=== PATIENT | female | born 1995 | race Caucasian/White ===

== ENCOUNTER 2020-03-01 10:47 | Emergency (ER) | payer OTHER, SELFPAY ==
[2020-03-01 10:54] VITALS: BP 142/65; PULSE 101; RESP 14; TEMP 36.8; O2SAT 99
--- NOTE | 2020-03-01 11:18 | ED.GENADULT ---
HPI - General Adult General Chief complaint: Skin/Abscess/Foreign Body Stated complaint: rash Time Seen by Provider: 03/01/20 11:18 Source: patient and RN notes reviewed Mode of arrival: ambulatory Limitations: no limitations History of Present Illness HPI narrative: This is a 24 years old female presents to the office for an evaluation of skin lesion of her scalp. States, she was dying her own hair two days ago and the following day, she develops itchy, burning rash along her scalp. Associated with headache. This is a first time that she ever use these hair product; because normally she would go to hair salon to get it done. Denies any other associated symptoms such as fever, congestion, cough, nausea or vomiting. Related Data Allergies Allergy/AdvReac Type Severity Reaction Status Date / Time No Known Allergies Allergy Unknown Uncoded 03/01/20 11:00 Review of Systems Review of Systems: Narrative: CONSTITUTIONAL: Denies fever or feeling ill ENT: Denies congestion CARDIOVASCULAR: Denies chest pain RESPIRATORY: Denies dyspnea GASTROINTESTINAL: Denies nausea, vomiting SKIN: Reports burning with itchy scalp NEUROLOGIC: Denies lightheaded/dizziness PMFSH Comments At time of signature, I agree with nursing past medical, surgical, social and family history. There is no relevant family history pertinent to the presenting complaint. Exam Narrative: Exam Narrative: GENERAL: This is a well-nourished, well-developed patient, in no apparent distress. EYES:Sclera clear/white. Vision is grossly intact. EARS: right external ear appears edematious and erythema. Left external ear normal. Hearing grossly intact. THROAT: Mucous membranes moist, posterior pharynx clear. CARDIOVASCULAR: Regular rate and rhythm without murmurs, gallops, or rubs. RESPIRATORY: Clear to auscultation. Breath sounds equal bilaterally. No wheezes, rales, or rhonchi. GASTROINTESTINAL: Abdomen soft, non-tender, nondistended. Bowel sounds are active. No guarding. SKIN: right side scalp noted [id number], edematous and tender to palpation lesions. No warmth to palpation. No lymphandenitis. NEURO: awake, alert, and oriented to person, place and time. There were no obvious focal neurologic abnormalities. Steady gait Y[place] Coma Scale Eye Opening: Spontaneous 4 [place] Coma Scale Motor: Obeys Commands 6 [place] Coma Scale Verbal: Oriented 5 Course Vital Signs Vital signs: Vital Signs Temperature 98.2 F 03/01/20 10:54 Pulse Rate 101 H 03/01/20 10:54 Respiratory Rate 14 03/01/20 10:54 Blood Pressure 142/65 H 03/01/20 10:54 Pulse Oximetry 99 03/01/20 10:54 Temperature 98.2 F 03/01/20 10:54 Pulse Rate 101 H 03/01/20 10:54 Respiratory Rate 14 03/01/20 10:54 Blood Pressure 142/65 H 03/01/20 10:54 Pulse Oximetry 99 03/01/20 10:54 Medical Decision Making MDM Narrative Medical decision making narrative: Patient is Urgent/Emergent. BP elevated due to current condition w/o HTN in PMH (Measure Met). Discharge instructions reviewed with patient, as well as provided in writing per nursing staff. The instructions also include specific and strict return/GO TO THE ER as well as f/u information. All questions have been answered, and the patient deny any further questions with discharge and discharge plan. Differential Diagnosis Differential Diagnosis: Contact/allergic dermatitis, atopic dermatitis, psoriasis, eczema, cellulitis, tinea, erythema multiforme, viral exanthem Vital Signs Vital Signs: Vital Signs Temperature 98.2 F 03/01/20 10:54 Pulse Rate 101 H 03/01/20 10:54 Respiratory Rate 14 03/01/20 10:54 Blood Pressure 142/65 H 03/01/20 10:54 Pulse Oximetry 99 03/01/20 10:54 Temperature 98.2 F 03/01/20 10:54 Pulse Rate 101 H 03/01/20 10:54 Respiratory Rate 14 03/01/20 10:54 Blood Pressure 142/65 H 03/01/20 10:54 Pulse Oximetry 99 03/01/20 10:54 Critical Care Time Critical Care
== END 2020-03-01 11:40 | disposition home or self-care (01) ==
PROVIDERS: Emergency Provider Nurse Practitioner
DX: L24.89 Irritant contact dermatitis due to other agents (principal)
CPT/HCPCS: 99213; G0463

== ENCOUNTER 2020-06-05 13:11 | Emergency (ER) | payer OTHER, SELFPAY ==
[2020-06-05 13:34] VITALS: BP 131/76; PULSE 103; RESP 16; TEMP 36.9; O2SAT 99
--- NOTE | 2020-06-05 13:36 | ED.FEMALEGU ---
HPI - Female Genitourinary General Chief complaint: Urogenital-Female Stated complaint: UTI Time Seen by Provider: 06/05/20 13:55 Source: patient and RN notes reviewed Mode of arrival: ambulatory Limitations: no limitations History of Present Illness HPI Narrative: This is a 24 years old female presents to the office for an evaluation of possible UTI. Onset since yesterday with urinary urgency, frequency, and pain. She also reported lower back pain. She is sexually active with one partner. Denies chance of . Related Data Home Medications Medication Instructions Recorded Confirmed trazodone 100 mg PO DAILY 06/05/20 06/05/20 Allergies Allergy/AdvReac Type Severity Reaction Status Date / Time No Known Allergies Allergy Verified 06/05/20 14:03 Review of Systems Review of Systems: Narrative: CONSTITUTIONAL: Denies fever ENT: Denies rhinorrhea, congestion, sore throat CARDIOVASCULAR: Denies chest pain, palpitation RESPIRATORY: Denies dyspnea, wheezing, cough GASTROINTESTINAL: Denies abdominal pain, nausea, vomiting GENITOURINARY: Denies abnormal discharge/lesions SKIN: Denies rash MUSCULOSKELETAL: Reports lower back pain NEUROLOGIC: Denies lightheaded All other systems reviewed are negative, except as documented in HPI. PMFSH Comments At time of signature, I agree with nursing past medical, surgical, social and family history. There is no relevant family history pertinent to the presenting complaint. Exam Narrative: Exam Narrative: GENERAL: This is a well-nourished, well-developed patient, in no apparent distress. CARDIOVASCULAR: Regular rate and rhythm without murmurs, gallops, or rubs. RESPIRATORY: Clear to auscultation. Breath sounds equal bilaterally. No wheezes, rales, or rhonchi. GASTROINTESTINAL: Abdomen soft, non-tender, nondistended. Bowel sounds are active. No hepato-splenomegaly, or palpable masses. No guarding. NO CVA tenderness SKIN: warm, intact with no suspicious lesions or rash, good texture and turgor. NEURO: awake, alert, and oriented to person, place and time. There were no obvious focal neurologic abnormalities. Steady gait [place] Coma Scale Eye Opening: Spontaneous 4 Y[place] Coma Scale Motor: Obeys Commands 6 [place] Coma Scale Verbal: Oriented 5 Course Vital Signs Vital signs: Vital Signs Temperature 98.4 F 06/05/20 13:34 Pulse Rate 103 H 06/05/20 13:34 Respiratory Rate 16 06/05/20 13:34 Blood Pressure 131/76 06/05/20 13:34 Pulse Oximetry 99 06/05/20 13:34 Temperature 98.4 F 06/05/20 13:34 Pulse Rate 103 H 06/05/20 13:34 Respiratory Rate 16 06/05/20 13:34 Blood Pressure 131/76 06/05/20 13:34 Pulse Oximetry 99 06/05/20 13:34 MDM - Female Genitourinary MDM Narrative Medical decision making narrative: Discharge instructions reviewed with patient, as well as provided in writing per nursing staff. The instructions also include specific and strict return/GO TO THE ER as well as f/u information. All questions have been answered, and the patient* deny any further questions with discharge and discharge plan. Differential Diagnosis Differential diagnosis: Likely urinary tract infection, cervicitis, ovarian cyst, vaginitis and cystitis Lab Data Labs: Urine Glucose Negative Reference Range: Negative Urine Bilirubin Negative Reference Range: Negative Urine Ketone Negative Reference Range: Negative Urine Specific [place] 1.025 Reference Range:1.001-1.035 Urine Blood Negative Reference Range: Negative * * Urine pH 7.0 Reference Range: 5.0-9.0 Urine Protein 1+ Reference Range: Negative Urine Urobilinogen 1.0 Reference Range: 0.2-1.0 Urine Nitrate Negative Reference Range: Negative
== END 2020-06-05 14:05 | disposition home or self-care (01) ==
PROVIDERS: Emergency Provider Nurse Practitioner
DX: N30.00 Acute cystitis without hematuria (principal)
CPT/HCPCS: 81003; 87077; 87086; 87088; 87186; 99213; G0463

== ENCOUNTER 2020-07-02 16:52 | Emergency (ER) | payer OTHER, SELFPAY ==
[2020-07-02 17:03] VITALS: BP 118/62; PULSE 113; RESP 18; TEMP 37.5; O2SAT 97
--- NOTE | 2020-07-02 17:06 | ED.GENADULT ---
HPI - General Adult General Chief complaint: Nausea/Vomiting/Diarrhea Stated complaint: vomitting/light headed Time Seen by Provider: 07/02/20 17:06 Source: patient History of Present Illness HPI narrative: Patient here and states she has been late on her normal menses. Patient states her last normal period was May 22, 2020. Patient requests a test at today's visit. Patient denies any nausea no vomiting no abdominal pain and no pelvic pain. Patient states she frequently has unprotected intercourse, but is not concerned for any std. Patient states this is her third and has 2 healthy children at home. Related Data Allergies Allergy/AdvReac Type Severity Reaction Status Date / Time No Known Allergies Allergy Verified 07/02/20 17:09 Review of Systems Review of Systems: Narrative: CONSTITUTIONAL: Denies fever, chills, or sweats. EYES: Denies visual changes, redness, or discharge. ENT: Denies rhinorrhea, congestion, sore throat, or otalgia. CARDIOVASCULAR: Denies chest pain, palpitations, or edema. RESPIRATORY: Denies cough or dyspnea. GASTROINTESTINAL: Denies abdominal pain, nausea, vomiting, or diarrhea. GENITOURINARY: Denies dysuria or hematuria. SKIN: Denies rash or itching. MUSCULOSKELETAL: Denies back pain, joint pain, or myalgia. NEUROLOGIC: Denies headache, numbness, or weakness. PSYCHIATRIC: Denies anxiety or depression. PMFSH Comments At time of signature, agree with nursing past medical, surgical, social and family history. There is no relevant family history pertinent to the presenting complaint Exam Narrative: Exam Narrative: GENERAL: Well-appearing, well-nourished, and in no acute distress. HEAD: Normocephalic, atraumatic. EYES: PERRLA and EOMI. ENT: Nares clear, no rhinorrhea or epistaxis. Mucous membranes moist. NECK: Supple. CHEST: Clear to auscultation. No respiratory distress. HEART: Regular rate and rhythm. No murmur heard. Normal peripheral pulses. ABDOMEN: Soft, nontender, nondistended, normal active bowel sounds. EXTREMITIES: Normal range of motion. No edema. SKIN: Warm, dry, no rash. NEURO: No focal deficits. Alert and oriented x3. [place] Coma Scale Eye Opening: Spontaneous 4 Y[place] Coma Scale Motor: Obeys Commands 6 [place] Coma Scale Verbal: Oriented 5 [place] Coma Scale Total 15 Course Vital Signs Vital signs: Vital Signs Temperature 37.5 C 07/02/20 17:03 Pulse Rate 113 H 07/02/20 17:03 Respiratory Rate 18 07/02/20 17:03 Blood Pressure 118/62 07/02/20 17:03 Pulse Oximetry 97 07/02/20 17:03 Temperature 37.5 C 07/02/20 17:03 Pulse Rate 113 H 07/02/20 17:03 Respiratory Rate 18 07/02/20 17:03 Blood Pressure 118/62 07/02/20 17:03 Pulse Oximetry 97 07/02/20 17:03 Medical Decision Making Differential Diagnosis Differential Diagnosis: Irregular menses, Vital Signs Vital Signs: Vital Signs Temperature 37.5 C 07/02/20 17:03 Pulse Rate 113 H 07/02/20 17:03 Respiratory Rate 18 07/02/20 17:03 Blood Pressure 118/62 07/02/20 17:03 Pulse Oximetry 97 07/02/20 17:03 Temperature 37.5 C 07/02/20 17:03 Pulse Rate 113 H 07/02/20 17:03 Respiratory Rate 18 07/02/20 17:03 Blood Pressure 118/62 07/02/20 17:03 Pulse Oximetry 97 07/02/20 17:03 Lab Data Labs: UCG Bedside Result Positive Reference Range: Negative Critical Care Time Critical Care Time Critical Care Time: No Discharge Plan Discharge Clinical Impression: Irregular menses, Patient Disposition: Home, Self-Care Condition: Stable Instructions: Antibiotic Form Additional Instructions: Follow-up with OB head greenskeeper as soon as possible Take vitamins as prescribed Prescriptions: Maurilio [email or web address].vits,nemo,[email or web address] Tablet 1 tablet PO HS Qty: 30 RF: 0 Follow-up/Referrals: PHYSICIAN,IMPRESS ASSOCIATE [Primary Care Provider] - Time of Disposition: 17:17
== END 2020-07-02 17:25 | disposition home or self-care (01) ==
PROVIDERS: Emergency Provider Nurse Practitioner Family
DX: Z32.01 Encounter for pregnancy test, result positive (principal)
CPT/HCPCS: 81025; 99213; G0463

== ENCOUNTER 2025-11-12 08:49 | Emergency (ER) | payer OTHER, SELFPAY ==
--- OUTSIDE RECORDS SUMMARY | 2025-11-12 08:54 | XMS_ITS | Data Portability ---
Author Organization [facility] Address [address] [place] [address] Care Team Providers Care Tactical Response Group Officer Name Role Phone NOWAK, NIKKI Primary Care Provider [phone] JEROMY RUDOLPH [employer] Assessment Encounter Date Assessment Date Assessment LastModified by Organization Details LastModified Time 07/08/2024 07/08/2024 34 weeks, GBS and TDAP today f/u 2 weeks for cervix check Not available 07/08/2024 11:04:18 07/22/2024 07/22/2024 36 weeks, doing well, third baby Not available 07/22/2024 11:06:24 08/31/2024 08/31/2024 No PPD issues will get IUD in 2 weeks at PP exam after third baby Not available 08/31/2024 15:28:49 09/14/2024 09/14/2024 normal PP exam after third baby changed mind about IUD, will start minipill Not available 09/14/2024 11:47:15 05/03/2025 05/03/2025 will start patch after next cycle Not available 05/03/2025 15:30:38 Plan of Treatment Reminders Order Date Submit Date Provider Last Modified By Organization Details Last Modified Time Details Appointments None recorded. Lab cytology report, thin prep, smear or scraping, cervical or vaginal 2023 024 [facility], [address] [place] [address] 2, [place], [address], 11/04/202 4 16:12:48 urinalysis, dipstick 2023 024 In-Office Order, Internal Use Only DO Not Attach Compendium DO Not Attach Compendium, Do Not Delete/merge, [id number] 11:06:26 urinalysis, dipstick 2023 024 In-Office Order, Internal Use Only DO Not Attach Compendium DO Not Attach Compendium, Do Not Delete/merge, [id number] 11:04:20 streptococc us group B DNA 2023 024 [facility], [address] [place] [address], [id number], 16:10:21 Referral None recorded. Procedures None recorded. Surgeries None recorded. Imaging None recorded. Medication Orders Xulane 150 mcg-35 mcg/24 hr transdermal patch 2024 025 [facility] #[id number], [address], [place], [id number], 5 15:31:52 Fouzia 0.35 mg tablet 2023 025 [id number], [address], [place], [id number], 5 15:19:27 Patient TargetsNo targets recorded. Patient Instructions Encounter Date Encounter Id Patient Instructions Last Modified By Organization Details Last Modified Time 07/08/2024 [id number] tetanus and diphtheria booster: care instructions Not available 07/08/2024 11:04:19 08/31/2024 [id number] depression after childbirth: care instructions Not available 08/31/2024 15:28:49 stress in parent s of infants: care instructions Not available 08/31/2024 15:28:49 edinburgh depression scale* Not available 08/31/2024 15:28:50 09/14/2024 [id number] edinburgh depression scale* Not available 09/14/2024 11:48:44 05/03/2025 [id number] Quitting Tobacco : Care Instructions Not available 05/03/2025 15:30:52 A healthy lifestyle: care instructions Not available 05/03/2025 15:30:52 Reason for Referral None Reported. Results Created Date Observation Date Name Description Value Unit Range Abnormal Flag Note LastModifiedBy Organization Detail LastModifiedTime 06/10/20 24 06/10/2024 urina lysis , dipst ick Protein Trace Not Available In-Office Order Internal Use Only DO Not Attach Compendium DO Not Attach Compendium, Do Not Delete/merge, [id number] 06/07/2024 13:51:00 06/10/2006/10/2024 urina lysis , dipst ick Glucose Negati ve Not Available In-Office Order Internal Use Only DO Not Attach Compendium DO Not Attach Compendium, Do Not Delete/merge, [id number] 06/07/2024 13:51:00 06/24/2006/24/2024 GESTA MARLON L GLUCO SE MENDEL ANCE note: COMMEN T For diagn osis of gesta marlon l diabe romana, at least two value s must meet or excee d ml l limit s, which is based on 100 gm of oral gluco se chall enge. Not Available [facility] ([facility]) [address] [place], [address], 06/25/2024 11:14:12 06/24/20 24 06/25/2024 GESTA MARLON L GLUCO SE MENDEL ANCE glucose - fasting 80 mg/dL 70-94 Not Available [facility] ([facility]) [address] [place], [address], 06/25/2024 11:14:12 06/24/20 24 06/25/2024 GESTA MARLON L GLUCO SE MENDEL ANCE glucose - 1 hour 185 mg/dL 70-179 above high normal Not Available [facility] ([facility]) [address] [place], [address], 06/25/2024 11:14:12 06/24/20 24 06/25/2024 GESTA MARLON L GLUCO SE MENDEL ANCE glucose - 2 hour 137 mg/dL 70-154 Not Available [facility] ([facility]) [address] [facility], [place], [address], 06/25/2024 11:14:12 06/24/20 24 06/25/2024 GESTA MARLON L GLUCO SE MENDEL ANCE glucose - 3 hour 80 mg/dL 70-139 Not Available [facility] ([facility]) [address] [facility], [place], [address], 06/25/2024 11:14:12 06/24/20 24 06/24/2024 urina lysis , dipst ick Protein Trace Not Available In-Office Order Internal Use Only DO Not Attach Compendium DO Not Attach Compendium, Do Not Delete/merge, [id number] 06/22/2024 15:07:40 06/24/20 24 06/24/2024 urina lysis , dipst ick Glucose Negati ve Not Available In-Office Order Internal Use Only DO Not Attach Compendium DO Not Attach Compendium, Do Not Delete/merge, [id number] 06/22/2024 15:07:40 07/08/20 24 07/10/2024 STREP GP B SEGUNDO strep gp B SEGUNDO NEGATI VE negati ve Cente rs for Disea se Contr ol and Preve ntion (CDC) and Ameri can Congr ess of Obste trici ans and Gynec ologi sts (ACOG ) guide lines for preve ntion of perin atal group B strep tococ nemo (GBS) disea se speci fy co-co llect ion of a vagin al and recta l swab speci men to maxim ize sensi tivit y of GBS detec tion. Per the CDC and ACOG, swabb ing both the lower vagin a and rectu m subst antia lly incre ases the yield of detec tion fernandez red with sampl ing the vagin a alone . Penic illin G, ampic illin , or cefaz ayush are indic ated for intra partu m proph ylaxi s of perin atal GBS colon izati on. Refle x susce ptibi lity testi ng shoul d be perfo rmed prior to use of clind amyci n only on GBS isola romana from penic illin -enriqueta rgic women who are consi dered a high risk for anaph ylaxi s. Treat ment with vanco mycin witho ut addit ional testi ng is warra nted if resis tance to clind amyci n is noted . Not Available [facility] ([facility]) [address] [facility], [place], [address], 07/10/2024 16:10:21 07/08/2007/08/2024 urina lysis , dipst ick Protein Trace Not Available In-Office Order Internal Use Only DO Not Attach Compendium DO Not Attach Compendium, Do Not Delete/merge, 07/08/2024 10:55:42 07/08/20 24 07/08/2024 urina lysis , dipst ick Glucose Negati ve Not Available In-Office Order Internal Use Only DO Not Attach Compendium DO Not Attach Compendium, Do Not Delete/merge, 07/08/2024 10:55:42 07/22/20 24 07/22/2024 urina lysis , dipst ick Protein 30 Not Available In-Office Order Internal Use Only DO Not Attach Compendium DO Not Attach Compendium, Do Not Delete/merge, 07/22/2024 10:42:03 07/22/20 24 07/22/2024 urina lysis , dipst ick Glucose Negati ve Not Available In-Office Order Internal Use Only DO Not Attach Compendium DO Not Attach Compendium, Do Not Delete/merge, 07/22/2024 10:42:03 07/22/20 24 07/22/2024 urina lysis , dipst ick Appearance Slight ly Cloudy Not Available In-Office Order Internal Use Only DO Not Attach Compendium DO Not Attach Compendium, Do Not Delete/merge, 07/22/2024 10:42:03 07/22/20 24 07/22/2024 urina lysis , dipst ick Color Yellow Not Available In-Office Order Internal Use Only DO Not Attach Compendium DO Not Attach Compendium, Do Not Delete/merge, [id number] 07/22/2024 10:42:03 08/31/20 24 08/31/2024 edinb urgh postn atal depre ssion scale * Score 1 Not Available In-Office Order Internal Use Only DO Not Attach Compendium DO Not Attach Compendium, Do Not Delete/merge, [id number] 08/31/2024 15:14:48 09/14/2009/20/2024 IGP, RFX APTIM A HPV ASCU diagnosis: DAVID WILLETT FOR INTRA EPITH ELIAL KALEY Paul OR THANIA PETERSEN . Not Available [facility] ([facility]) [address] [place], [address], 09/20/2024 16:12:48 09/14/2009/20/2024 IGP, RFX APTIM A HPV ASCU specimen adequacy: DAVID Natarajan Satis facto ry for evalu ation . Endoc ervic al and/o r squam ous metap lasti c cells (endo cervi nemo compo nent) are prese nt. Not Available [facility] ([facility]) [address] [place], [address], 09/20/2024 16:12:48 09/14/20 24 09/20/2024 IGP, RFX APTIM A HPV ASCU clinician provided ICD10: DAVID Natarajan Z39.2 Not Available [facility] ([facility]) [address] [place], [address], 09/20/2024 16:12:48 09/14/20 24 09/20/2024 IGP, RFX APTIM A HPV ASCU performed by: Lenin Leon (ASCP ) Not Available [facility] ([facility]) [address] [place], [address], 09/20/2024 16:12:48 09/14/20 24 09/20/2024 IGP, RFX APTIM A HPV ASCU . . Not Available [facility] ([facility]) [address] [place], [address], 09/20/2024 16:12:48 09/14/20 24 09/20/2024 IGP, RFX APTIM A HPV ASCU note: COMMEN T The Pap smear is a scree blade test desig tom to aid in the detec tion of matt ligna nt and malig nant condi tions of the uteri ne cervi x. It is not a diagn ostic proce dure and shoul d not be used as the sole means of detec ting cervi nemo cance r. Both false -posi tive and false -nega tive repor ts do occur . Not Available [facility] ([facility]) [address] [facility], [place], [address], 09/20/2024 16:12:48 09/14/20 24 09/20/2024 IGP, RFX APTIM A HPV ASCU test methodology: COMMEN T This liqui d based ThinP rep(R ) pap test was scree tom with the use of an image guide d systmaura m. Not Available [facility] ([facility]) [address] [place], [address], 09/20/2024 16:12:48 09/14/20 24 09/20/2024 IGP, RFX APTIM A HPV ASCU . COMMEN T The HPV DNA refle x crite jarad were not met with this speci men resul t there fore, no HPV testi ng was perfo rmed. Not Available [facility] ([facility]) [address] [place], [address], 09/20/2024 16:12:48 09/14/20 24 09/14/2024 edinb urgh postn atal depre ssion scale * Score 0 Not Available In-Office Order Internal Use Only DO Not Attach Compendium DO Not Attach Compendium, Do Not Delete/merge, [id number] 09/14/2024 11:30:14 06/15/20 24 06/14/2024 US, lainey tijerinao w-up No observ ation record ed. CARL Wooten [facility] Scheduling [address] [facility] [place], [address], 06/17/2024 10:58:04 Result Notes None recorded. Problems Name Problem SNOMED Code Status Onset Date Resolution Date Notes Provider Name and Address Organization Details Recorded Time Obesity 588618626 Active 2020 Nikki Nowak APN MAIL READER-C Attn: Accounting ,[address] [place], [place], [address] [place] [address] , [facility] 1 10:23:45 Mood disorder 60167481 Active 2020 Nikki Nowak APN, FNP-Awilda Attn: Accounting ,[address] [place], [place], [address] [place] [address] , [facility] 1 10:24:07 Tobacco user 145762831 Active 2020 Nikki Nowak APN, FNP-C Attn: Accounting ,[address] [place], [place], [address] [place] [address] , [facility] 1 10:24:08 Gastroesop hageal reflux disease without esophagiti s 888839841 Active 2020 Nikki Nowak APN, FNP-C Attn: Accounting ,[address] [place], [place], [address] [place] [address] , [facility] 1 10:26:15 Vitamin D deficiency 49755925 Active 2022 ELISEO MANZO MD Attn: Accounting ,[address] [place], [place], [address] [place] [address] , [facility] 3 11:32:33 [id number] Completed 202308/13/2024 Lynn Christy Latanya null, [facility] 4 15:36:19 Problem Notes None recorded. Procedures Surgical History Date Name Laterality Status Provider Name and Address Organization Details Recorded Time 3 IUD Removal completed ELISEO MANZO MD Attn: Accounting[address] , [place], [address], [facility] 06/17/2023 11:15:05 3 Date of Last Pap Smear completed SCOOTER Donohue [facility] 01/28/2024 11:51:11 Imaging Results None recorded. Procedure Notes None recorded. Medical Equipment None Reported. Allergies No known drug allergies Medications Name Sig Start Date Stop Date Status Note LastModified by Organization Details LastModified Time cetirizine 10 mg tablet TAKE 1 TABLET BY MOUTH DAILY active Not Available Not Available No t Available benzonatat e 200 mg capsule TAKE 1 CAPSULE BY MOUTH UP TO THREE TIMES DAILY NEEDED FOR COUGH 01/27 completed Not Available Not Available Not Available hydrocodon e 5 mg-acetami nophen 325 mg tablet TAKE 1 TABLET BY MOUTH EVERY 6 HOURS NEEDED FOR MODERATE TO SEVERE PAIN 01/07 completed not taking Not Available Not Available Not Available meloxicam 15 mg tablet TK 1 T PO Q NIGHT PRN P 06/14 completed Not Available Not Available Not Available phenazopyr idine 200 mg tablet TAKE ONE TABLET BY MOUTH THREE TIMES DAILY 06/14 completed Not Available Not Available Not Available penicillin V potassium 500 mg tablet TAKE 1 TABLET BY MOUTH EVERY 8 HOURS FOR 10 DAYS 01/07 completed not taking Not Available Not Available Not Available metronidaz ole 500 mg tablet 06/14 completed Not Available Not Available Not Available amoxicilli n 500 mg tablet TAKE 1 TABLET BY MOUTH TWICE DAILY FOR 7 DAYS 01/27 completed Not Available Not Available Not Available amoxicilli n 875 mg tablet TAKE 1 TABLET BY MOUTH TWICE DAILY FOR 7 DAYS 05/03 completed Not Available Not Available Not Available famotidine 20 mg tablet TAKE 1 TABLET BY MOUTH TWICE DAILY NEEDED 06/17 completed Not Available Not Available Not Available cephalexin 500 mg capsule 06/14 completed Not Available Not Available Not Available ergocalcif mal (vitamin D2) 1,250 mcg (50,000 unit) capsule Take 1 capsule every week by oral route. 06/17 completed Not Available Not Available Not Available ibuprofen 600 mg tablet TAKE 1 TABLET BY MOUTH EVERY 6 HOURS NEEDED FOR PAIN 06/17 completed not taking Not Available Not Available Not Available methylpred nisolone 4 mg tablets in a dose pack FOLLOW PACKAGE DIRECTIO NS 05/03 completed Not Available Not Available Not Available norethindr one (contracep tive) 0.35 mg tablet TAKE 1 TABLET BY MOUTH EVERY DAY 05/03 completed Not Available Not Available Not Available ondansetro n 4 mg disintegra ting tablet DISSOLVE 1 TABLET ON THE TONGUE EVERY 8 HOURS NEEDED active Not Available Not Available No t Available fluticason e propionate 50 mcg/actuat ion nasal spray,susp ension 1 SPRAY IN EACH NOSTRIL EVERY NIGHT BEFORE BEDTIME. active Not Available Not Available No t Available escitalopr am 5 mg tablet TAKE 1 TABLET BY MOUTH EVERY DAY-MUST SCHEDULE APPT FOR FURTHER REFILLS 06/17 completed Not Available Not Available Not Available nitrofuran toin monohydrat e/macrocry stals 100 mg capsule TAKE 1 CAPSULE BY MOUTH TWICE DAILY FOR 7 DAYS 05/03 completed Not Available Not Available Not Available CompleteNa te 29 mg iron-1 mg chewable tablet Chew 1 tablet every day by oral route for 30 days. 01/27 completed Not Available Not Available Not Available Xulane 150 mcg-35 mcg/24 hr transderma l patch Apply 1 patch every week by transder mal route. 2024 active Not Available Not Available Not Avai lable Se-Kwasi 19 29 mg iron-1 mg tablet 06/14 completed Not Available Not Available Not Available Paxlovid 300 mg (150 mg x 2)-100 mg tablets in a dose pack TK 2 NIRMATRE LVIR TS AND 1 RITONAVI R T TOGETHER PO TWICE DAILY X 5 DAYS 01/27 completed Not Available Not Available Not Available Vitals Date Recorded Body height Body mass index (BMI) Body weight Systolic And Diastolic Provider Name and Address Organization Details Last Updated DateTime 05/03/2025 157.48 cm 34 kg/m2 81978.47 g 118/80 mm[Hg] Lynn Christy Latanya [place] [facility] 05/03/2025 15:18:37 Date Recorded Body height Body mass index (BMI) Body weight Systolic And Diastolic Provider Name and Address Organization Details Last Updated DateTime 07/08/2024 157.48 cm 38.6 kg/m2 55336.13 g 127/77 mm[Hg] Lynn Christy [facility] 07/08/2024 10:55:14 Date Recorded Body height Body mass index (BMI) Body weight Systolic And Diastolic Provider Name and Address Organization Details Last Updated DateTime 07/22/2024 157.48 cm 39 kg/m2 79615.61 g 116/78 mm[Hg] Rebeca Last [facility] 07/22/2024 10:40:57 Date Recorded Body height Body mass index (BMI) Body weight Systolic And Diastolic Provider Name and Address Organization Details Last Updated DateTime 08/31/2024 157.48 cm 33.7 kg/m2 13826.43 g 111/76 mm[Hg] Lynn Christy [facility] 08/31/2024 15:13:11 Date Recorded Body height Body mass index (BMI) Body weight Systolic And Diastolic Provider Name and Address Organization Details Last Updated DateTime 09/14/2024 157.48 cm 33.5 kg/m2 16233.83 g 113/78 mm[Hg] [facility] 09/14/2024 11:29:13 Social History Question Answer Notes LastModified by Organizat ion Details LastModified Time Tobacco Smoking Status Former Smoker Quit - 2021 Avelina Quezada MA [facility] 01/07/2023 09:56:02 Do You Have An Advance Directive? No Information not available 06/14/2021 Are You Blind Or Do You Have Difficulty Seeing? No Glasses Information not available 01/07/2023 What Is Your Level Of Caffeine Consumption? Occasional Coffee Information not available 01/07/2023 In The 14 Days Before Symptom Onset, Have You Had Close Contact With A Laboratory-confi rmed COVID-19 While That Case Was Ill? No Information not available 06/14/2021 In The 14 Days Before Symptom Onset, Have You Had Close Contact With A Person Who Is Under Investigation For COVID-19 While That Person Was Ill? No Information not available 06/14/2021 Have You Been To An Area Known To Be High Risk For COVID-19? No Information not available 06/14/2021 Are You Deaf Or Do You Have Serious Difficulty Hearing? No Information not available 06/14/2021 What Type Of Diet Are You Following? REGULAR Watching Carbs Information not available 06/17/2023 Are There Any Guns Present In Your Home? No Information not available 06/14/2021 What Was The Date Of Your Most Recent Tobacco Screening? 05/03/2025 Information not available 05/03/2025 How Many Children Do You Have? 2 Information not available 01/07/2023 What Is Your Relationship Status? Single Information not available 06/14/2021 Do You Use Your Seat Belt Or Car Seat Routinely? Yes Information not available 06/14/2021 Are You Sexually Active? Yes Information not available 06/17/2023 Do You Have Smoke And Carbon Monoxide Detectors In Your Home? Yes Information not available 06/14/2021 At What Age Did You Start Smoking Tobacco? 16 Information not available 06/14/2021 Are You Passively Exposed To Smoke? Yes Information not available 06/14/2021 How Much Tobacco Do You Smoke? 0.5 PPD Information not available 01/28/2024 Do You Use Sunscreen Routinely? Yes Information not available 06/14/2021 Has Tobacco Cessation Counseling Been Provided? Yes Information not available 01/07/2023 On What Date Was Tobacco Cessation Counseling Provided? 05/03/2025 Information not available 05/03/2025 How Many Years Have You Smoked Tobacco? 9 06/14/2021 Information not available 06/14/2021 Sex: Female Functional Status Question Answer Note LastModified by Organizat ion Details LastModified Time Do you use any illicit or recreational drugs? No Information not available 06/14/2021 Do you or have you ever used any other forms of tobacco or nicotine? Yes Information not available 06/14/2021 What is your level of alcohol consumption? None quit - 10/2022 Information not available 01/07/2023 Do you or have you ever used smokeless tobacco? Never used smokeless tobacco Information not available 06/14/2021 Are you currently employed? No Information not available 06/17/2023 Are you able to care for yourself independently? Yes Information not available 06/14/2021 Do you or have you ever used e-cigarettes or vape? Current user of electronic cigarettes 0.5% nicotine Information not available 01/07/2023 What is your exercise level? Occasional 2-3x week goes to gym Information not available 06/17/2023 Mental Status Question Answer Note LastModified by Organization D etails LastModified Time Do you feel stressed (tense, restless, nervous, or anxious, or unable to sleep at night)? [id number] Information not available 06/17/2023 Family History Relationship Description Onset Age of this Age Resolved Age Notes LastModified by Organization Details LastModified Time Father Depressive disorder [email or web address] Not available 2020 10:09:34 Medical History Condition Response Coronary Artery Disease N Other N High Blood Pressure N Atrial Fibrillation N Kidney or Bladder Problems N Thyroid Problems N GI Problems N Depression Y COPD N Blood Clots N Skin Problems N Eating Disorder N Anemia N Heart Attack ([place]) N Anxiety Disorder Y Diabetes N Muscle, Joint, or Bone Problems N Seizures/Epilepsy N Acid Reflux (GERD) Y Cancer N Stroke N Asthma N Allergies N ADHD N Substance Abuse N High Cholesterol N Hepatitis N Liver Disease N Schizophrenia N Headaches N Osteoporosis N Heart Failure N Gynecological History Statement/Question Response Flow Moderate Date of LMP 11/10/2023 On BCP's at Conception? N STIs/STDs N Duration of Flow (days) 5 Age at Menarche 15 Current Control Method None Age at First Child 18 Frequency of Cycle (Q days) 28 Sexually Active? Y Menses Monthly Y Date of Last Pap Smear 06/17/2023 Sexual Problems? N LMP Definite Desired Control Method Vaginal Rin g Obstetrics History GPAL:G 5 P 3 0 2 3 Type Value Full Term 3 Induced 2 Living 3 Total 5 Immunizations Vaccine Type Date Status Note Provider Nam e and Address Organization Details Recorded Time Hib, unspecified formulation 8 completed Nikki Nowak, DIRECTOR [employer]AN[employer], MAIL READER-C Attn: Accounting[address] [facility], [place], [place], [address] [place] [address], [facility] 01/07/2023 10:10:53 HPV9 1 completed Nikki Nowak, DIRECTOR [employer]ANCHISE SALES, MAIL READER-C Attn: Accounting,[address] [facility], [place], [place], [address] [place] [address], [facility] - [facility] 01/07/2023 10:10:53 IPV 2 completed Nikki Nowak, DIRECTOR [employer], MAIL READER-C Attn: Accounting,[address] [facility], [place], [place], [address] [place] [address], [facility] - [facility] 01/07/2023 10:10:53 MMR 8 completed Nikki Nowak, DIRECTOR [employer], MAIL READER-C Attn: Accounting,[address] [facility], [place], [place], [address] [place] [address], [facility] 01/07/2023 10:10:53 MMR 2 completed Nikki Nowak, DIRECTOR [employer]ES, MAIL READER-C Attn: Accounting,[address] [facility], [place], [address] [place] [address], [facility] 01/07/2023 10:10:53 influenza, unspecified formulation 7 completed Nikki Nowak, DIRECTOR [employer], MAIL READER-C Attn: Accounting,[address] [facility], [place], [address] [place] [address], [facility] 01/07/2023 10:10:53 Tdap 7 completed Nikki Nowak, DIRECTOR [employer]ES, MAIL READER-C Attn: Accounting,[address] [facility], [place], [address] [place] [address], [facility] 01/07/2023 10:10:53 varicella 7 completed Nikki Nowak, DIRECTOR [employer], MAIL READER-C Attn: Accounting,[address] [facility], [place], [address] [place] [address], [facility] 01/07/2023 10:10:53 varicella 2 completed Nikki Nowak, DIRECTOR [employer], MAIL READER-C Attn: Accounting,[address] [facility], [place], [address] [place] [address], [facility] 01/07/2023 10:10:53 OPV, trivalent 7 completed Nikki Nowak, DIRECTOR [employer], MAIL READER-C Attn: Accounting,[address] [facility], [place], [address] [place] [address], [facility] 01/07/2023 10:10:53 OPV, trivalent 7 completed Nikki Nowak, DIRECTOR FRANCHISE SALES, MAIL READER-C Attn: Accounting,204 1 [facility], [place], [place], [address] [place] [address], [facility] 01/07/2023 10:10:53 OPV, trivalent 7 completed Nikki Nowak, DIRECTOR FRANCHISE SALES, MAIL READER-C Attn: Accounting,204 1 [facility], [place], [place], [address] [place] [address], [facility] 01/07/2023 10:10:53 DTP-Hib 7 completed Nikki Nowak, DIRECTOR FRANCHISE SALES, MAIL READER-C Attn: Accounting,204 1 [facility], [place], [place], [address] [place] [address], [facility] 01/07/2023 10:10:53 DTP-Hib 7 completed Nikki Nowak, DIRECTOR FRANCHISE SALES, MAIL READER-C Attn: Accounting,204 1 [facility], [place], [place], [address] [place] [address], [facility] 01/07/2023 10:10:53 DTP-Hib 7 completed Nikki Nowak, DIRECTOR FRANCHISE SALES, MAIL READER-C Attn: Accounting,204 1 [facility], [place], [place], [address] [place] [address], [facility] 01/07/2023 10:10:53 HPV, bivalent 7 completed Nikki Nowak, DIRECTOR FRANCHISE SALES, MAIL READER-C Attn: Accounting,204 1 [facility], [place], [address] [place] [address], [facility] 01/07/2023 10:10:53 HPV, quadrivalent 7 completed Nikki Nowak, DIRECTOR FRANCHISE SALES, MAIL READER-C Attn: Accounting,204 1 [facility], [place], [place], [address] [place] [address], [facility] 01/07/2023 10:10:53 Hep B, adolescent or pediatric 7 completed Nikki Nowak, DIRECTOR FRANCHISE SALES, MAIL READER-C Attn: Accounting,204 1 [facility], [place], [address] [place] [address], [facility] 01/07/2023 10:10:53 Hep B, adolescent or pediatric 6 completed Nikki Nowak, DIRECTOR FRANCHISE SALES, MAIL READER-C Attn: Accounting,204 1 [facility], [place], [address] [place] [address], [facility] 01/07/2023 10:10:53 Hep B, adolescent or pediatric 6 completed Nikki Nowak, DIRECTOR FRANCHISE SALES, MAIL READER-C Attn: Accounting,204 1 [facility], [place], [address] [place] [address], [facility] 01/07/2023 10:10:53 Hep A, ped/adol, 2 dose 7 completed Nikki Nowak, DIRECTOR FRANCHISE SALES, MAIL READER-C Attn: Accounting,204 1 [facility], [place], [address] [place] [address], [facility] 01/07/2023 10:10:53 Hep A, ped/adol, 2 dose 6 completed Nikki Nowak, DIRECTOR FRANCHISE SALES, MAIL READER-C Attn: Accounting,204 1 [facility], [place], [address] [place] [address], [facility] 01/07/2023 10:10:53 DTaP 8 completed Nikki Nowak, DIRECTOR FRANCHISE SALES, MAIL READER-C Attn: Accounting,204 1 [facility], [place], [address] [place] [address], [facility] 01/07/2023 10:10:53 DTaP 2 completed Nikki Nowak, DIRECTOR FRANCHISE SALES, MAIL READER-C Attn: Accounting,204 1 [facility], [place], [place], [address] [place] [address], [facility] 01/07/2023 10:10:53 Tdap 5 completed Lynn Jaelyn, R[place], [place] [facility] 01/28/2024 11:52:01 Influenza, split virus, quadrivalent, PF 5 completed Lynn Jaelyn, [place] [facility] 01/28/2024 11:52:02 MMR 4 completed Lynn Mariace, RMA null, [place] - [facility] 09/14/2024 11:19:03 Tdap 4 completed Jeromy Rudolph MD Attn: Accounting,204 1 [facility], [place], [address], [facility] 07/08/2024 11:04:19 Past Encounters Encounter ID Performer Location Encounter Start Date Encounter Closed Date Diagnosis/Indication Diagnosis SNOMED-CT Code Diagnosis ICD10 Code Diagnosis IMO Codes Diagnosis Note [id number] MD Jorge Luis Aguilera (Adult Med) [address] [place] [address] 06/14/2021 09:57:46 06/15/2021 21:23:00 Adult health examination 846648754 Z00.01 Encouraged routine PRODUCTION SOLDERER, vision, dental exams, well balanced diet. Obesity 096380810 E66.9 advised low fat, low cholestero l diet, regular exercise and weight reduction. Mood disorder 82698684 F 40 used to be on medication , was in rehab at [facility] [place], would like referral to Tobacco user 912169775 Z 72.0 Smoking cessation encouraged . Gastroesop hageal reflux disease without esophagitis 031135751 K21.9 cont prn acid reducerdie t changes advised Impacted t hird molar tooth 358456182 K01.1 will send abx, advised pt ot see dentist Skin nodule 33985198 R22 .9 soft nodule to forehead, approx 2 cm, movable, no pain with palpation, no redness, dwp options for removal, declines referral for now [id number] MD Jorge Luis Aguilera (Adult Med) [address] [place] [address] 01/07/2023 09:41:57 01/08/2023 14:34:26 Adult health examination 370232248 Z00.01 Encouraged routine PRODUCTION SOLDERER, vision, dental exams, well balanced diet. Skin nodule 09444998 R22 .9 soft nodule to forehead, approx 2 cm, movable, no pain with palpation, no redness,ca using headaches, most daysdwp options for removal, now wants referral to have it removed Obesity 561777372 E66.9 advised low fat, low cholestero l diet, regular exercise and weight reduction. Gastroesop hageal reflux disease without esophagitis 748671602 K21.9 cont prn acid reducerdie t changes advised Mood disorder 35148948 F 40 used to be on medication , was in rehab at [place], would like referral to [facility]/B/A/SE of antidepres bessy medication discussed such as gastrointe stinal s/e, mood irritabili ty, Suicidal ideation, risk of paresh. F/U in 3-4 weeks. Call with concerns and questions. Compliance with medication s and follow up care strongly recommende d. Call 911 or ER for crises. Electronic cigarette user 200870462 Z72.89 Smoking cessation encouraged . [id number] [facility] [address] [place] [address] 06/17/2023 10:28:45 06/18/2023 10:30:08 Removal of intrauterine device 99532293 Z30.432 - Paraguard IUD removed without difficulty - Discussed importance of taking daily vitamin with folic acid 400 mcg since patient is not opposed to at this time- Provided and discussed Reproducti ve Access handout on preparing for Vitamin D deficiency 347 67850 E55.9 - Vitamin D deficient with level of 13.9 on 01/07/23- Advised patient of importance of vitamin D replacemen t when trying to conceive and during ; recommende d she call pharmacy to refresh prescripti on by PCP for high-dose replacemen t Body mass index 30+ - obesity 023939601 Z68.35 - Normal A1c on 01/07/23- Recommende d daily moderate-i ntensity activity and increasing fruit and vegetable intake in diet Routine gy necologic examination done 5465101463 4911 Z01.419 - Reviewed risks for infection and cancer; ordered screening tests as appropriat e Screening for malignant neoplasm of cervix 830298118 Z12.4 - Due for Pap; collected today [id number] MD Dolly Ramirez 14 [address] [facility] [place] [address] 01/28/2024 11:41:44 01/29/2024 12:33:47 Normal 55346818 Z34.90 [id number] MD Dolly Ramirez [address] [place] [address] 02/26/2024 09:51:57 02/27/2024 07:39:49 Normal 00676298 Z34.82 [id number] MD Dolly Ramirez [address] [place] [address] 04/01/2024 10:47:47 04/02/2024 15:21:54 Normal 55326435 Z34.82 [id number] MD Dolly Ramirez [address] [place] [address] 04/22/2024 10:41:22 04/24/2024 13:51:55 Normal 62799942 Z34.82 [id number] MD Dolly Ramirez [address] [place] [address] 05/21/2024 09:35:31 05/24/2024 12:44:16 Normal 15531323 Z34.82 [id number] MD Dolyl Ramirez [address] [place] [address] 06/10/2024 09:46:10 06/11/2024 10:41:43 Normal 89319192 Z34.82 [id number] MD Dolly Ramirez [address] [place] [address] 06/24/2024 09:53:41 07/12/2024 09:09:40 Normal [id number] Z34.82 [id number] MD Dolly Ramirez 14 [address] [facility] [place] [address] 07/08/2024 10:29:52 07/13/2024 10:47:12 Normal 92924679 Z34.82 Administra tion of diphtheria, pertussis, and tetanus vaccine 496735575 Z23 [id number] MD Dolly Ramirez 14 OB [address] [facility] [place] [address] 07/22/2024 10:31:33 08/06/2024 12:00:13 Normal 62992504 Z34.82 [id number] MD Dolly Ramirez 14 OB [address] [facility] [address] [place], [place] [address], [place] [address] 08/31/2024 14:59:30 09/02/2024 15:39:05 care 345058702 Z39.2 depression 58 012683 F53.0 [id number] MD Dolly Ramirez [address] [facility] [place] [address] 09/14/2024 11:09:32 09/16/2024 11:53:00 care 224156347 Z39.2 Contracept ion care management 465081191 Z30.9 [id number] MD Dolly Ramirez [address] [facility] [place] [address] 05/03/2025 15:06:26 05/04/2025 15:02:08 Depression screening negative 5242651647 61338 Z13.31 70233504 Smoker 35367424 F17.200 Obese class I 2366591344 55851 E66.811 2569061340 Prescripti on of contraception 833091464 Z30.016 14560030 Health Concerns Section Related Observation LastModified by Organization Detai ls LastModified Time None Recorded Concern Status LastModified by Organization Details LastModified Time None Recorded Advance Directives Directive N: Payers Insurance Date Sequence Insurance Name Policy Number Policy Diaz Covered Member ID Diaz Member ID Guarantor Name 05/03/2025 1 [facility] ON OR AFTER 05/17/21 (MEDICAID REPLACEMENT - HMO) Aicha Moreno [id number] Aicha Moreno 02/25/2025 1 [place] [facility] Aicha Moreno [id number] Aicha Moreno 02/25/2025 1 [facility] PRIOR TO 05/17/2021 (MEDICAID REPLACEMENT - HMO) Aicha Moreno [id number] Aicha Moreno 02/25/2025 1 [facility] PRIOR TO 2021 (MEDICAID REPLACEMENT - HMO) Aicha Mccormackborne [id number] Aicha Moreno Notes Date Note Type Note Provider Name and Address Organization Details Recorded Time 4 text/html VisitReported by Patient 4 weeks out from third vaginal delivery no PPD issuesbreast feedingI thought this one would be easier wants IUD at PP exam Jeromy Rudolph MD Attn: Accounting,20 41 [facility], [place], [address], [place] [facility] 08/31/2024 15:29:05 4 text/html VisitReported by Patient 3rd vaginal delivery 6 weeks ago.plan for IUD insertion todaybreastfeedingno PPD issues Jeromy Rudolph MD Attn: Accounting,20 41 [facility], [place], [address], [place] [facility] 09/14/2024 11:48:46 5 text/html Here for contraceptive discussion stopped breast feeding her 9 mos old two months ago, stopped minipill then interested in nuvaring which she has used before Jeromy Rudolph MD Attn: Accounting,20 41 [facility], [place], [address], [place] [facility] 05/03/2025 15:31:07 OBGyn Episode Ob Episode Information Episode Created Date Number of Fetuses Patient Bloodtype Patient rh Status Prepregnancy Weight lbs Domestic Partner Domestic Partner Phone Father Name Apparatus Repair Mechanic Status 01/28/20 24 1 A Positive CLOSED Fetus Data First Name Last Name Admitted to NICU Weight (g) Sex Living Outcome Pediatric Complications Fetus ID Race Codes Race Delivery Type Bentley MCMANUS DT false 3416.13 [id number] M true Full Term 98158 2106-3 White Vaginal Harvinder Calculation Initial Harvinder Date Initial Exam Date Initial Exam Provider Initial Ultrasound Date Last Menstrual Period Date Ultra Sound Weeks Gestation 08/16/2024 01/28/2024 03/29/2024 11/10/2023 20 Eighteen To Twenty Week Harvinder Update Ultra Sound Date Fundal Height At Umbil Quickening Date Ultra Sound Latest Weeks Gestation Final Harvinder Confirmed By Final Harvinder Confirmed Date Final Harvinder Date Ultra Sound Latest Days Gestation 06/14/20 24 31 04/01/2024 08/16/20 24 0 Pre- Flowsheet Flowsheet Date 01/28/2024 Kahn Score Blood Edema Fundus Height Fundus Units Glucose Ketones Leukocytes Nitrite Labor Signs Protein Cervic Dilation Cervic Effacement Cervic Station 11 wks Type Weight in lbs Pre/Post Dialysis Refused With clothes 199.875156973655 BP Diastolic BP Location Tested BP Systolic BP Type 80 132 sitting Fetus Heart Rate Present A 154 Present Fetus Movement Comments Normal NOB exam at 11 weeks, good FHTsHas a hx of 2 vaginal deliveries ( both girls 8 &9 ) Flowsheet Date 02/26/2024 Kahn Score Blood Edema Fundus Height Fundus Units Glucose Ketones Leukocytes Nitrite Labor Signs Protein Cervic Dilation Cervic Effacement Cervic Station none 15 wks none trace Type Weight in lbs Pre/Post Dialysis Refused With clothes 204.755684763711 BP Diastolic BP Location Tested BP Systolic BP Type 76 130 sitting Fetus Heart Rate Present A 145 Present Fetus Movement A Yes Comments 15 weeks doing wellplan andre elvin US in 3 weeks, f/u here in 4 weeks Flowsheet Date 04/01/2024 Kahn Score Blood Edema Fundus Height Fundus Units Glucose Ketones Leukocytes Nitrite Labor Signs Protein Cervic Dilation Cervic Effacement Cervic Station none 20 wks Type Weight in lbs Pre/Post Dialysis Refused With clothes 205.283263432813 BP Diastolic BP Location Tested BP Systolic BP Type 77 117 sitting Fetus Heart Rate Present A 146 Present Fetus Movement A Yes Comments EDC confirmed by US, still a boy, possibly Masona few pics missing from US, will get a f/u after next visit in 3 weeksPNV making constipated, will try some chewable kid vitamins Flowsheet Date 04/22/2024 Kahn Score Blood Edema Fundus Height Fundus Units Glucose Ketones Leukocytes Nitrite Labor Signs Protein Cervic Dilation Cervic Effacement Cervic Station none 22 cm none neg Type Weight in lbs Pre/Post Dialysis Refused With clothes 203.09982278154 BP Diastolic BP Location Tested BP Systolic BP Type 74 115 sitting Fetus Heart Rate Present A 143 Present Fetus Movement A Yes Comments 23 weeks .some const ipation issues. discussed fruit, apple juice, avoiding dehydration. Told her to call if worsens for colace discussion as well.plan f/u US before next time, sugar test at next visit Flowsheet Date 05/21/2024 Kahn Score Blood Edema Fundus Height Fundus Units Glucose Ketones Leukocytes Nitrite Labor Signs Protein Cervic Dilation Cervic Effacement Cervic Station none 25 cm Type Weight in lbs Pre/Post Dialysis Refused With clothes 203.342754895167 BP Diastolic BP Location Tested BP Systolic BP Type 73 112 sitting Fetus Heart Rate Present A 138 Present Fetus Movement A Yes Comments 27 weeks, active babydoing s ugar test todaystill waiting on f/u USconstipation better. reflux still challenging Flowsheet Date 06/10/2024 Kahn Score Blood Edema Fundus Height Fundus Units Glucose Ketones Leukocytes Nitrite Labor Signs Protein Cervic Dilation Cervic Effacement Cervic Station none 27 cm none none trace Type Weight in lbs Pre/Post Dialysis Refused With clothes 204.802609450340 BP Diastolic BP Location Tested BP Systolic BP Type 80 L arm 117 sitting Fetus Heart Rate Present A 146 Fetus Movement A Yes Comments Our lab was unable to do h er 3 hr GTT last week. Has a follow up US next week. Otherwise doing well Flowsheet Date 06/24/2024 Kahn Score Blood Edema Fundus Height Fundus Units Glucose Ketones Leukocytes Nitrite Labor Signs Protein Cervic Dilation Cervic Effacement Cervic Station 29 cm none trace Type Weight in lbs Pre/Post Dialysis Refused With clothes 208.777100014498 BP Diastolic BP Location Tested BP Systolic BP Type 78 L arm 121 sitting Fetus Heart Rate Present A 136 Fetus Movement A Yes Comments Doing 3 hr GTT todayactive b brooks, no ctx.works at [employer], discussed wanting to be off work as of 08/02, possible 39 week induction on 08/09 Flowsheet Date 07/08/2024 Kahn Score Blood Edema Fundus Height Fundus Units Glucose Ketones Leukocytes Nitrite Labor Signs Protein Cervic Dilation Cervic Effacement Cervic Station 32 cm none none trace Type Weight in lbs Pre/Post Dialysis Refused With clothes 211.242537529604 BP Diastolic BP Location Tested BP Systolic BP Type 77 R arm 127 sitting Fetus Heart Rate Present A 156 Fetus Movement A Yes Comments 34 weeks, GBS done todayacti vebabyno ctxgood spiritsplan cervix check at next visit Flowsheet Date 07/22/2024 Kahn Score Blood Edema Fundus Height Fundus Units Glucose Ketones Leukocytes Nitrite Labor Signs Protein Cervic Dilation Cervic Effacement Cervic Station none 34 cm none none neg 1cm 60% -3 Type Weight in lbs Pre/Post Dialysis Refused With clothes 213.472401607329 BP Diastolic BP Location Tested BP Systolic BP Type 78 R arm 116 sitting Fetus Heart Rate Present A 150 Fetus Movement A Yes Comments 1/60% on cervix todaylabor p recautions, kick countsf/u 1 1/2 weeks Menstrual History Last Menstrual Date Menses Monthly On Bcp Conception Prior Menses Frequency Hcg Plus Date Menarche Onset Age 1211/10/2023 Genetic Screening And Infection History Question Response Note Patient's Age Will Be 35 Years Or Older At Estim ated Date of Delivery false Thalassemia (Sami, Portuguese, Mediterranean, Or Background): MCV < 80 false Neural Tube Defect (Meningomyelocele, Spina Bifi da, Or Anencephaly) false Congenital Heart Defect false Down Syndrome false Jose Elias-Sachs (eg, Yarsanism, Cajun, Tristanian-Hubbard) f alse Silvano Disease false Sickle Cell Disease Or Trait () false Hemophilia Or Other Blood Disorders false Muscular Dystrophy false Cystic Fibrosis false Callaway's Chorea false Mental Retardation/Autism false If Yes, Was Person Tested For Fragile X? false Other Inherited Genetic Or Chromosomal Disorder false Maternal Metabolic Disorder (eg, Type 1 Diabetes , PKU) false Patient Or Baby's Father Had A Child With Defects Not Listed Above false Recurrent Loss, Or A Stillbirth false Medications (including Suppl ements, Vitamins, Herbs, OTC Drugs), Illicit/Recreational Drugs, Alcohol false If Yes, Agent(s) And Strength/Dosage false Any Other Genetic History false Live With Someone With TB Or Exposed To TB false Patient Or Partner Has History Of Genital Herpes false Rash Or Viral Illness Since Last Menstrual Perio d false History Of STD, Gonorrhea, Chlamydia, HPV, Syphi lis false Other Infection History false History of HIV false History of Hepatitis false Prior GBS-infected child false Delivery Information Delivery Date Delivery Type Labor Anesthesia Weeks Gestation Incision Type Labor Labor Length Hrs Delivered By Post Complications Tubal Sterilization Discharge Date Comments 4 Sponta neous 38 false RudolphPriyankJeromy MD false Discharge Information Feeding Method Contraceptive Method Maternal HG B and HCT Levels Breast Ob Episode Information Episode Created Date Number of Fetuses Patient Bloodtype Patient rh Status Prepregnancy Weight lbs Domestic Partner Domestic Partner Phone Father Name Apparatus Repair Mechanic Status 06/14/20 21 1 CLOSED Fetus Data First Name Last Name Admitted to NICU Weight (g) Sex Living Outcome Pediatric Complications Fetus ID Race Codes Race Delivery Type 3175.14 4 F Full Term [address]505 Vaginal Only Harvinder Calculation Initial Harvinder Date Initial Exam Date Initial Exam Provider Initial Ultrasound Date Last Menstrual Period Date Ultra Sound Weeks Gestation 0 Eighteen To Twenty Week Harvinder Update Ultra Sound Date Fundal Height At Umbil Quickening Date Ultra Sound Latest Weeks Gestation Final Harvinder Confirmed By Final Harvinder Confirmed Date Final Harvinder Date Ultra Sound Latest Days Gestation 0 0 Menstrual History Last Menstrual Date Menses Monthly On Bcp Conception Prior Menses Frequency Hcg Plus Date Menarche Onset Age Delivery Information Delivery Date Delivery Type Labor Anesthesia Weeks Gestation Incision Type Labor Labor Length Hrs Delivered By Post Complications Tubal Sterilization Discharge Date Comments 5 Dr. Randle delivered Discharge Information Feeding Method Contraceptive Method Maternal HG B and HCT Levels Ob Episode Information Episode Created Date Number of Fetuses Patient Bloodtype Patient rh Status Prepregnancy Weight lbs Domestic Partner Domestic Partner Phone Father Name Apparatus Repair Mechanic Status 06/14/20 21 1 CLOSED Fetus Data First Name Last Name Admitted to NICU Weight (g) Sex Living Outcome Pediatric Complications Fetus ID Race Codes Race Delivery Type 3628.73 6 F Full Term 36754 Vaginal Only Harvinder Calculation Initial Harvinder Date Initial Exam Date Initial Exam Provider Initial Ultrasound Date Last Menstrual Period Date Ultra Sound Weeks Gestation 0 Eighteen To Twenty Week Harvinder Update Ultra Sound Date Fundal Height At Umbil Quickening Date Ultra Sound Latest Weeks Gestation Final Harvinder Confirmed By Final Harvinder Confirmed Date Final Harvinder Date Ultra Sound Latest Days Gestation 0 0 Menstrual History Last Menstrual Date Menses Monthly On Bcp Conception Prior Menses Frequency Hcg Plus Date Menarche Onset Age Delivery Information Delivery Date Delivery Type Labor Anesthesia Weeks Gestation Incision Type Labor Labor Length Hrs Delivered By Post Complications Tubal Sterilization Discharge Date Comments 4 Dr. Randle delivered Discharge Information Feeding Method Contraceptive Method Maternal HG B and HCT Levels
--- OUTSIDE RECORDS SUMMARY | 2025-11-12 08:54 | XMS_ITS | Clinical Summary ---
Author Organization [employer] [facility] Address [address] [place] [address] Care Team Providers Care Nurse Practical Name Role Phone No, Pcp PET HOUSE SITTER Primary Care Provider Unavailabl e Social History Tobacco Use Types Packs/Day Years Used Date Smoking Tobacco: Never Assessed Comments Unknown Sex and Gender Information Value Date Recorded Sex Assigned at Not on file Legal Sex Female 5:54 PM EST Gender Identity Not on file Sexual Orientation Not on file Plan of Treatment Not on file Medical Devices Not on file Care Teams Nurse Practical Relationship Specialty Start Date End Date No, Pcp, PET HOUSE SITTER N/A Do not use PCP - General Family Medicine 11/21/20
--- OUTSIDE RECORDS SUMMARY | 2025-11-12 08:54 | XMS_ITS | Clinical Summary ---
Author Organization [facility] Address [address] [place] [address] Phone Care Team Providers Care College Hire Name Role Phone Modesto Monzonluis JHAVERI CNP Primary Care Provider [phone] Allergies No known active allergies Medications HYDROcodone-leeanna taminophen (NORCO) 5-325 MG TabletIndicatio ns:Cervical strain, acute, initial encounter Take 1 Tablet by mouth every 6 hours as needed for Moderate or more severe pain. 12 Tablet 07/21/2021 Active Family History Medical History Relation Name Comments Drug Abuse Father Drug Abuse Mother Bipolar Disorder Paternal Grandmother Bipolar Disorder Sister Relation Name Status Comments Father Mother Paternal Grandmother Sister Social History Tobacco Use Types Packs/Day Years Used Date Smoking Tobacco: Former Cigarettes Smokeless Tobacco: Current Alcohol Use Standard Drinks/Week Comments Not Currently 0 (1 standard drink = 0.6 oz pure alcohol) not drank in two months, was drinking daily, went to rehab three years ago AUDIT-C Answer Date Recorded Frequency of Alcohol Consumption Never 10/30/2019 Average Number of Drinks Not on file 019 Frequency of Binge Drinking Not on file 10/17 Sexually Active Control Partners Comments Yes Implant Comments No Sex and Gender Information Value Date Recorded Sex Assigned at Not on file Legal Sex Female 11:05 PM CDT Gender Identity Not on file Sexual Orientation Not on file Last Filed Vital Signs Vital Sign Reading Time Taken Comments Blood Pressure 130/75 12/07/2023 7:45 PM PRINTING TECHNICIAN Pulse 101 12/07/2023 7:45 PM PRINTING TECHNICIAN Temperature 36.5 C (97.7 F) 12/07/2023 7:45 PM PRINTING TECHNICIAN Respiratory Rate 19 12/07/2023 7:45 PM PRINTING TECHNICIAN Oxygen Saturation 98% 12/07/2023 7:45 PM PRINTING TECHNICIAN Inhaled Oxygen Concentration - - Weight 88.5 kg (195 lb) 12/07/2023 7:45 PM PRINTING TECHNICIAN Height 157.5 cm (5' 2) 12/07/2023 7:45 PM PRINTING TECHNICIAN Body Mass Index 35.67 12/07/2023 7:45 PM PRINTING TECHNICIAN Plan of Treatment Health Maintenance Due Date Last Done Comments Hepatitis C Virus (HCV) Screening 1996 Pap Smear 2017 Influenza Immunization (#1) 2025 08/30/2015, 1 11/29/2006 SARS-COV-2 Immunization ( season) 2025 Respiratory Syncytial Virus (RSV) Immunization (Adult) (1 - 1-dose 75+ series) 2071 Hepatitis B Immunization Completed 997, 1996, 1996 Varicella Immunization Completed 05/29/2007, 2001 DTaP/Tdap/Td Immunization Discontinued 2014, 05/29/2007, 07/01/2002, Additional history exists TdaP Immunization Completed 08/28/2015, 05/29/2007 Human Papillomavirus (HPV) Immunization Completed 09/11/2021, 09/29/2007, 05/29/2007 Meningococcal Immunization (ACWY) Aged Out No longer eligible based on patient's age to complete this topic Pneumococcal Immunization Combined Aged Out No longer eligible based on patient's age to complete this topic Rotavirus Immunization Aged Out No lo nger eligible based on patient's age to complete this topic Goals Goal Patient Goal Type Associated Problems Recent Progress Patient-Stated? Author Behavioral Health Behavioral Health Yes Sonia Bertrand, WEB APPLICATIONS DEVELOPER Note: I need to cope with my anger and not fly off the handle. Insurance MEDICAID [employer] Care Teams College Hire Relationship Specialty Start Date End Date Nikki Monzon APRN, CAROLYN PCP - General Family Medicine 07/21/21
--- OUTSIDE RECORDS SUMMARY | 2025-11-12 08:54 | XMS_ITS | Patient Health Record ---
Author Organization [facility] Address [address] [place] [address] Phone [phone] Care Team Providers Care Procurement Professional Logistics Name Role Phone Arnav JHAVERI Sandy Primary Care Provider + [phone] Dante Ken Unavailable [phone] Lola Martinez Unavailable Allergies No Known Allergies Results Component Value Reference Range Notes Test, Urine Order date: 05/10/2025 Reviewed date:05/10/2025 04:40:17 PM Interpretation:Negative Performing Lab: Notes/Report: Negative Test, Urine Neg Negative - Negative 12 Panel Urine Drug Screen Order date: 05/10/2025 Reviewed date:05/10/2025 03:47:55 PM Interpretation: Performing Lab: Notes/Report: THC neg BELEN neg MOP (OPI) neg AMP neg MET neg BAR neg BZO neg MDMA neg MTD neg OXY neg PCP neg BUP neg Reason For Referral Addressed Referral details can be found under 'Consultation Request Notes' section Medications Medication SIG (Take, Route, Frequency, Duration) Notes Start Date End Date Diagnosis (ICD Code) Status Naltrexone HCl 50 MG Tablet 0.5 tablet Orally once 5 Alcohol use disorder (ICD_10 - F10.99) Active Vivitrol 380 MG Suspension Reconstituted as directed Intramuscular every 28 days 5 Alcohol use disorder (ICD_10 - F10.99) Active Omeprazole 20 MG Capsule Delayed Release 1 capsule 30 minutes before morning meal Orally Once a day; Duration: 30 day(s) 0 Gastroesophageal reflux disease without esophagitis (ICD_10 - K21.9) Not-Takin g hydrOXYzine HCl 10 MG Tablet take 1-1.5 tablets Orally twice a day as needed for anxiety; Duration: 30 days Generalized an xiety disorder (ICD_10 - F41.1) Not-Takin g LaMICtal 25 MG Tablet Take 1 tablet daily Orally at night; Duration: 14 days Major depressive disorder (ICD_10 - F32.9) Not-Takin g traZODone HCl 50 MG Tablet 1 tablet at bedtime as needed Orally Once a day; Duration: 30 days Major depressive disorder (ICD_10 - F32.9) Not-Takin g Social History Tobacco Use: Social History Observation Description Date Details (start date - stop date) Unknown Sex Observation Social History Observation Description Sex Observation Female Sexual Orientation Social History Observation Description Sexual Orientation Straight or heterose xual Gender Identity Social History Observation Description Gender Identity Female SDOH Assessments Date Tool Assessment Assessment LOINC Value Assessment Notes Goals Interventions 05/10/20 25 PRAPARE (LOINC: 78089-1) Total Score: 10 What was your release date? 01/17/20 20 Date Completed/Updated: 04/04/2020 What is your current housing situation? 85185-8 I have housing (LY50322-1) Are you worried about losing your housing? 88547-6 No (LA32-8) What is the highest level of school that you have finished? 03234-9 Less than a high school degree (OC32750-4) What is your current work situation? 62155-7 Unemployed and seeking work (KJ35362-8) In the past year, have you o r any family members you live with been unable to get any of the following when it was really needed? 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 83294-7 Yes, it has kept me from medical appointments or from getting my medications (AI25446-5) Yes, it has kept me from non-medical meetings, appointments, work, or getting things needed for daily living (CH76409-2) How often do you see or talk to people that you care about and feel close to? (For example: talking to friends on the phone, visiting friends or family, going to restoration or club meetings) 49165-6 More than 5 times a week (PC16104-6) How stressed are you? Stress is when someone feels tense, nervous, anxious, or can\t sleep at night because their mind is troubled 95769-2 Somewhat (AJ38157-7) In the past year have you sp ent more than 2 nights in a row in a residential, residential, halfway center, or juvenile correctional facility? 97699-7 Yes (LA33-6) Do you feel physically and e motionally safe where you currently live? 16681-3 Yes (LA33-6) In the past year, have you b een afraid of your partner or ex-partner? 78670-7 No (LA32-8) Are you a refugee? No What country are you from? [facility] PRAPARE Score: 10 Social History Social Determinants Social Info Question Answer Notes PRAPARE Date Completed/Updated: 04/04/2020 What is your current housing situation? I have h ousing Are you worried about losing your housing? No What is the highest level of school that you have finished? Less than a high school degree What is your current work situation? Unemployed and seeking work In the past year, have you o r any family members you live with been unable to get any of the following when it was really needed? 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 Yes, it has kept me from medical appointments or from getting my medications,Yes, it has kept me from non-medical meetings, appointments, work, or getting things needed for daily living How often do you see or talk to people that you care about and feel close to? (For example: talking to friends on the phone, visiting friends or family, going to restoration or club meetings) More than 5 times a week How stressed are you? Stress is when someone feels tense, nervous, anxious, or can\t sleep at night because their mind is troubled Somewhat In the past year have you sp ent more than 2 nights in a row in a residential, residential, halfway center, or juvenile correctional facility? Yes What was your release date? 01/17/2020 Are you a refugee? No What country are you from? [place] Do you feel physically and e motionally safe where you currently live? Yes In the past year, have you b een afraid of your partner or ex-partner? No PRAPARE Score: 10 Miscellaneous Social Info Question Answer Notes Method of learning: Preferred method of learning: Hear ing Sexual History: Social Info Question Answer Notes Details of Sexual History Are you sexually active? Yes Have you had any sexually transmitted diseases ( STDs)? Yes Sexual Abuse History: history in the past Primary Social History Social Info Question Answer Notes Living Arrangement Living Arrangement: Independent Wen ing Is this a supportive environment? Yes Single Question Alcohol Screening How many times in the past year have you had (4 for women, or 5 for men) or more drinks in a day? 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 No Household: Social Info Question Answer Notes Household Number of adults in household: 2 Number of children in household: 3 Level of education: not finished high school sto pped at 9th grade Tobacco Use: Social Info Question Answer Notes Tobacco Control (Standard) Tobacco use: Uses tobacco i n other forms Additional Findings: Tobacco user e-cigarette Additional Details Category Social Info Options Details Miscellaneous Domestic violence: none Legal problems: none Living with: significant othe r Problems Problem Type SNOMED Code ICD Code Dates Problem Status W/U Status Risk Notes Problem Generalized anxiety disorder (63037897) Generalized anxiety disorder (F41.1) Added On:01/2020 Active confirmed Problem Anxiety (11246715) Anxiety (F41.9) Added On:12/2019 Active confirmed Problem Major depressive disorder (647017478) Major depressive disorder (F32.9) Added On:01/2020 Onset Date: 020 Active confirmed r/o bipolar disorder Problem Overweight (455388669) Over weight (E66.3) Added On:04/19 Active confirmed Problem Alcohol use disorder (1467042160) Alcohol use disorder (F10.99) Added On:04/18 Active confirmed Problem Recurrent major depression in remission (89044233) Recurrent major depressive disorder, in partial remission (F33.41) Added On:12/2019 Onset Date: 020 Active confirmed Problem Gastroesophageal reflux disease without esophagitis (692470675) Gastroesophageal reflux disease without esophagitis (K21.9) Added On:12/2019 Active confirmed Problem Alcohol dependence (45908546) Alcohol use disorder, severe, dependence (F10.20) Added On:03/17 Active confirmed Vital Signs Vital Sign Value Notes Appt Date Heart Rate 99 /min 05/10/2025 Respiratory Rate 18 /min 05/10/2025 Oximetry 98 % 05/10/2025 Blood pressure diastolic 74 mm Hg Height 62 in 05/10/2025 Blood pressure systolic 128 mm Hg 04/18 Weight 185.4 lbs 05/10/2025 BMI 33.91 kg/m2 05/10/2025 Encounters Date Time Type Facility Location Provider Diagnosis 05/10/2025 03:40 PM Office Visit, New Pt., Level 2 (14533) [address] [place] [address] Lola Martinez Alcohol use disorder F10.99 and Over weight E66.3 Assessments Encounter Date Diagnosis (ICD Code) Assessment Notes Treatment Notes Section Notes 05/10/2025 Over weight (ICD-10 - E66.3) 05/10/2025 Alcohol use disorder (ICD-10 - F10.99) 05/10/2025 Other Naltrexone Injection material was printed Referred to peer recovery Discussed medication side effects, adverse effects, risks, benefits, as well as interactions. Encouraged non-use of alcohol. Notify provider if having a procedure that may require pain medication. Has Vivitrol alert bracelet and wallet card. Carry written information with you at all times to alert healthcare providers that you are taking Vivitrol. Recommend participation in recovery groups, counseling services. Agrees to return to office in 28 days for next injection. Contact office with any questions or concerns. Plan Of Treatment No Information Insurance Providers Payer Name Payer Address Payer Phone Subscriber Number Group Number Insured Name Patient Relationship to Insured Coverage Start Date Coverage End Date [facility] Attn Claims Department [address] [place] [id number] MorenoTricia olsenge Self - patient is the insured 0 [facility] [employer] Attn Claims Department [address] [place] [address] [phone] [id number] Tricia Morenoge Self - patient is the insured 0 [facility] [address] [place] [phone] [id number] Aicha Moreno Self - patient is the insured 0 Medications Administered Medication Instructions Date of Administration Dosage Diagnosis (ICD Code) Notes Vivitrol 05/10/2025 380 mg Yang Brantley 05/10/2025 04:59:06 PM CDT > Pt tolerated well. No s&s of adverse reaction. Medical (General) History Medical History History ICD Code Depression Anxiety Gastroesophageal reflux disease without esophagitis K21.9 Surgical History Surgery Date(Month/Year) Hospitalization History Reason Date(Month/Year) Alcohol rehab at [facility] 02/2020 overdose Juan Ctler 2011
--- OUTSIDE RECORDS SUMMARY | 2025-11-12 08:55 | XMS_ITS | Encounter Summary ---
Author Organization [facility] Address [address] [place] [address] Care Team Providers Care Principal Archaeologist Name Role Phone Jae Alejandra MD Primary Care Provider Encounter Details Date Type Department Care Team ([facility] st Contact Info) Description 08/04/2024 [facility] Post Discharge Follow up phone call [facility] [address] [place] [address] Stephie Coffey RN Social History Tobacco Use Types Packs/Day Years Used Date Smoking Tobacco: Former Vaping Smokeless Tobacco: Never Comments:Smoking History Pac ks/day: 6 Cigarettes Alcohol Use Standard Drinks/Week Comments Yes 0 (1 standard drink = 0.6 oz pur e alcohol) [facility] Utilities Answer Date Recorded In the past 12 months has e Tackle Grab, gas, oil, or water [employer] threatened to shut off services in your home? No 08/02/2024 Humiliation, Afraid, Rape, and Kick questionnair e Answer Date Recorded Within the last year, have y ou been afraid of your partner or ex-partner? No 08/02/2024 Within the last year, have y ou been humiliated or emotionally abused in other ways by your partner or ex-partner? No Within the last year, have y ou been kicked, hit, slapped, or otherwise physically hurt by your partner or ex-partner? No 08/02/2024 Within the last year, have y ou been raped or forced to have any kind of sexual activity by your partner or ex-partner? No 08/02/2024 Social Connection and Isolation Panel Answer Date Recorded In a typical week, how many times do you talk on the phone with family, friends, or neighbors? More than three times a week 08/02/2024 How often do you get togethe r with friends or relatives? More than three times a week 08/02/2024 How often do you attend chur ch or orthodoxy services? 1 to 4 times per year 08/02/2024 Do you belong to any clubs o r organizations such as temple groups, unions, fraternal or athletic groups, or school groups? Yes 08/02/2024 How often do you attend meet ings of the clubs or organizations you belong to? 1 to 4 times per year 08/02/2024 Are you , , di vorced, , never , or living with a partner? Living with partner 08/02/2024 AUDIT-C Answer Date Recorded Q1: How often do you have a drink containing alcohol? Never 08/02/2024 Q2: How many drinks containi ng alcohol do you have on a typical day when you are drinking? Patient does not drink Q3: How often do you have si x or more drinks on one occasion? Never 08/02/2024 Overall Financial Resource Strain (CARDIA) Answe r Date Recorded How hard is it for you to pa y for the very basics like food, housing, medical care, and heating? Not hard at all 08/02/2024 PHQ-2 Answer Date Recorded PHQ-2 Total Score (If total score is 3 or more points, staff should administer the PHQ-9) 0 08/02/2024 [facility] - Occupational Stress Questionnaire Answer Date Recorded Do you feel stress - tense, restless, nervous, or anxious, or unable to sleep at night because your mind is troubled all the time - these days? Not at all 08/02/2024 Exercise Vital Sign Answer Date Recorde d On average, how many days pe r week do you engage in moderate to strenuous exercise (like a brisk walk)? 4 days 08/02/2024 On average, how many minutes do you engage in exercise at this level? 40 min 08/02/2024 Hunger Vital Sign Answer Date Recorded Within the past 12 months, y ou worried that your food would run out before you got the money to buy more. Never true 08/02/20 24 Within the past 12 months, t he food you bought just didn't last and you didn't have money to get more. Never true 08/02/2024 PRAPARE - Transportation Answer Date Re corded In the past 12 months, has l ack of transportation kept you from medical appointments or from getting medications? No 07/18 In the past 12 months, has l ack of transportation kept you from meetings, work, or from getting things needed for daily living? No 08/02/2024 [place] Depression Scale Answer Date Recorded [place] Depression Scale Total 0 08/02/2024 The thought of harming myself has occurred to me . Never 08/02/2024 PHQ-9 Answer Date Recorded PHQ-9 Total Score 0 08/02/2024 Housing Stability Vital Sign Answer Aldo e Recorded In the last 12 months, was t here a time when you were not able to pay the mortgage or rent on time? No 08/02/2024 In the past 12 months, how m any times have you moved where you were living? 0 08/02/2024 At any time in the past 12 m onths, were you homeless or living in a fpc (including now)? No 08/02/2024 Personal Safety Answer Date Recorded Have you ever been in or are you currently in a harmful physical or emotional relationship or is someone making you feel afraid or unsafe? 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
--- OUTSIDE RECORDS SUMMARY | 2025-11-12 08:55 | XMS_ITS | Clinical Summary ---
Author Organization [facility] Address [address] [place] [address] Care Team Providers Care Speech Pathology Supervisor Name Role Phone Jae Alejandra MD Primary Care Provider Allergies No known active allergies Medications benzocaine-ment hoL (DERMOPLAST) 20-0.5 % aerosolIndicati ons:Minor Skin Wound Pain Apply 1 Application (1 spray total) topically as needed for other (perianal area for pain) 1 g 1 4 Active ibuprofen (ADVIL,MOTRIN) 600 mg tabletIndicatio ns:Cramps Take 1 tablet (600 mg total) by mouth every 6 (six) hours as needed for pain 30 tablet 1 4 Active Active Problems Problem Noted Date Diagnosed Date 38 weeks gestation of 08/02/2024 Lumbar strain, initial encounter 05/27/2020 Left Achilles tendinitis 03/27/2019 Trichomoniasis 10/14/2018 Cervicitis 10/14/2018 Urinary tract infection in female 10/14/2018 Amenorrhea 11/19/2017 Assessment & Plan (11/19/2017 6:23 PM WATERSHED ENGINEER): Aicha had a positive test which would put her at 5 weeks and 4 days based on her last menstrual period of September 15, 2017; patient is very upset and states that there is no way she can keep the baby; highly encouraged her to contact [facility] for counseling; encouraged her to get on a daily vitamin regardless of what her outcome will be; patient denies wanting to hurt self or others but encouraged to go to ER immediately if she feels like doing so. Depression 12/01/2014 Overview (02/20/2017): Depression Immunizations Immunization Administration Dates Next Due MMR 08/03/2024 Surgical History Surgery Date Site/Laterality Comments OTHER SURGICAL HISTORY 2013 : 2 hr labor Medical History Medical History Date Comments Hx Other Medical manag ement; Outcome: Live infant Hx Other Medical 10/03/2014 Depression Hx Other Medical ; Outc ome: 40 Weeks week 7lb(s) 12 oz Female Family History Medical History Relation Name Comments Hypertension Maternal Grandmother Hyperte nsion; Hypertension Mother Hypertension; Other Mother Blood disorder; Thyroid disease Mother Thyroid dise ase; Relation Name Status Comments Maternal Grandmother Mother Social History Tobacco Use Types Packs/Day Years Used Date Smoking Tobacco: Former Vaping Smokeless Tobacco: Never Comments:Smoking History Pac ks/day: 6 Cigarettes Alcohol Use Standard Drinks/Week Comments Yes 0 (1 standard drink = 0.6 oz pur e alcohol) [facility] [employer] Answer Date Recorded In the past 12 months has [employer], oil, or water [employer] threatened to shut off services in your [...] week 08/02/2024 How often do you attend [facility] or pentecostalism services? 1 to 4 times per year 08/02/2024 Do you belong to any clubs o r organizations such as yazidi groups, unions, fraternal or athletic groups, or [...] staff should administer the PHQ-9) 0 08/02/2024 [facility] [place] of Occupat ional Health - Occupational Stress Questionnaire Answer Date Recorded [...] things needed for daily living? No 08/02/2024 [place] Depression Scale Answer Date Recorded [place] Depression Scale Total 0 08/02/2024 The thought [...] any time in the past 12 m ont, were you homeless or living in a long-term (including now)? No 08/02/2024 Personal Safety Answer Date Recorded Have you ever been in or are you currently in a harmful physical or emotional relationship or is someone making you feel afraid or unsafe? Denies 05/21/2025 Comments No Sex and Gender Information Value Date Recorded Sex Assigned at Not on file Legal Sex Female 5:03 PM WATERSHED ENGINEER Gender Identity Not on file Sexual Orientation Not on file Obstetrics History Para Term AB IAB SAB Ectopic Multiple Livin g Live Births 6 3 3 2 0 3 3 Date Outcome GA Total Labor Labor/2nd/3rd Weight Sex Type Anes PTL Wen A1 A5 Name Clin Term Vag-Sp ont Livin g Term Vag-Sp ont Livin g AB AB 2023 Term 38w 0d 0h 39m 0h 32m/0h 07m 3.417 kg (7 lb 8.5 oz) M Vagina l Epidur al N Livin g 7 9 Gabri marianne Phelan s Josiah landry, Priyank aguilera MD Complications:Precipitous La bor (<3 hours) Delivery Location:[facility] ([facility]) Last Filed Vital Signs Vital Sign Reading Time Taken Comments Blood Pressure 138/84 05/21/2025 4:01 PM CDT Pulse 85 05/21/2025 4:01 PM CDT Temperature 36.5 C (97.7 F) 05/21/2025 4:01 PM CDT Respiratory Rate 18 05/21/2025 4:01 PM CDT Oxygen Saturation 96% 05/21/2025 4:01 PM CDT Inhaled Oxygen Concentration - - Weight 83.9 kg (185 lb) 05/21/2025 4:01 PM CDT Height 157.5 cm (5' 2) 05/21/2025 4:01 PM CDT Body Mass Index 33.84 05/21/2025 4:01 PM CDT Plan of Treatment Health Maintenance Due Date Last Done Comments Regular Well Visit/Exam 18-64 2014 Pneumococcal vaccine <65 (1 of 2 - PCV) 2015 Cervical Cancer Screening 10/24/2018 10/24/2017, 05/2013 Influenza Vaccine (#1) 2025 08/30/2015, 2006 Depression Screening 08/02/2025 08/02/2024, 08/02/20 24 DTaP/Tdap/Td Vaccine (9 - Td or Tdap) 07/08/2034 07/08/2024, 08/28/2015, 05/29/2007, Additional history exists Hepatitis B Screening Completed 03/09/1997 , 1996, 1996 Varicella Vaccines Completed 05/29/2007, 07/01/2002 Hepatitis C Screening Completed 07/26/2020 , 03/07/2017, 04/28/2015, Additional history exists HPV Vaccines Completed 09/11/2021, 09/17, 05/29/2007 Procedures Procedure Name Priority Date/Time Associated Diagnosis Comments HEPATITIS PANEL, ACUTE Routine 07/26/2020 4:37 PM CDT THINPREP TELEVISION REPORTER PAP (IMAGE GUIDED) LIQUID-BASED PREP Routine 10/24/2017 12:14 PM WATERSHED ENGINEER Amenorrhea from Last 3 Months or Most Recently Relevant to Health Maintenance Results * Hepatitis panel, acute (07/26/2020 4:37 PM CDT) Hep A IgM Nonreactive Nonreactive [facility] ([place]) Comment: Interpretive Data: If Hep A IgM Ab is reported as Equivocal, a new sample should be drawn in two weeks for testing. Current interpretive data was last revised on 20. Testing performed by: [facility], [address] [place] [address]., [id number] Hep B core IgM Nonreactive Nonreactive Awilda [facility] ([place]) Comment: Interpretive Data If HepB Core IgM Ab is reported as Equivocal, a new sample should be drawn in two weeks for testing. Current interpretive data was last revised on 20. Testing performed by: [facility], [address] [place] [address]., [id number] Hep C Ab Nonreactive Nonreactive SONALI [facility] ([place]) Comment: Interpretive Data Nonreactive: Antibodies to HCV not detected. Does NOT exclude the possibility of recent exposure to HCV. Equivocal: Equivocal for HCV antibodies. Supplemental molecular testing will be automatically performed to determine infection status in accordance with current CDC screening recommendations. Reactive: Positive for HCV antibodies. This may represent current or past HCV infection. Supplemental molecular testing will be automatically performed to determine current infection status in accordance with current CDC screening recommendations. Interpretive data was last revised on 2020. Testing performed by: [facility], [address] [place] [address]., [id number] HepBsAg Nonreactive Nonreactive SONALI [facility] ([place]) Comment:Testing performed by : [address] [id number] Blood specimen (specimen) 07/26/2020 4:37 PM CDT 07/26/2020 11:30 PM CDT us Kate Yee MD LAB MICROBIOLOGY - GENER AL ORDERABLES Final Result SONALI ROBERSON (DOLYL) 1 [facility] Department [place] [address] * (ABNORMAL) ThinPrep Gynecologic Pap Test (Image-guided), Liquid-based Preparation (10/24/2017 12:14PM WATERSHED ENGINEER) Report status CANCELED [facility] Comment:Result canceled by renee gibbons ancillary CLINICAL INFORMATION: [facility] Comment:Information not prov ided LMP [facility] Comment:INFORMATION NOT PROV IDED Previous Pap [facility] Comment:INFORMATION NOT PROV IDED Prev. Bx [facility] Comment:INFORMATION NOT PROV IDED SOURCE: [facility] - Comment:Information not prov ided Pap, specimen adequacy [facility] - Comment: Satisfactory for evaluation. Endocervical/transformation zone component present. Age and/or menstrual status not provided Pap, general categorization (A) [facility] - Comment:EPITHELIAL CELL ABNO RMALITY HPV interp (A) [facility] - Comment:Low Grade Squamous I ntraepithelial Lesion (LSIL) Infection: CANCELED [facility] - Comment:Result canceled by t edwige ancillary COMMENTS [facility] - Comment: This Pap test has been evaluated with computer assisted technology. Suggest clinical correlation and follow-up as clinically appropriate [employer] Salesperson [facility] - Comment: YQ, CT(ASCP) CT screening location: [place] [address] [place] [address] Review substation supervisor CANCELED [facility] - Comment:Result canceled by renee gibbons ancillary Pathologist [facility] - Comment: Lukasz Cota M.D., Board Certified in Anatomic Pathology and Cytopathology. (electronic signature) 10/24/2017 12:1 4 PM WATERSHED ENGINEER 10/27/2017 5:32 AM WATERSHED ENGINEER Narrative Resulting Agency Comment Performing Organization Information: Site ID: Name: [facility] Address: [facility] [place] [address] Director: Esperanza Handley MD Sandy Gaffney NP LAB PATHOLOGY ORDERABLES Final Result [facility] [place], [place] from Last 3 Months or Most Recently Relevant to Health Maintenance Insurance [facility] Advance Directives For more information, please contact: [phone] * Full Code (Latest Code Status on File) Date Activated Date Inactivated Comments 08/02/2024 8:17 AM 08/03/2024 9:00 PM * Full Code Date Activated Date Inactivated Comments 08/02/2024 2:28 AM 08/02/2024 8:17 AM Full CPR in case of cardiopulmonary arrest Care Teams Speech Pathology Supervisor Relationship Specialty Start Date End Date Jae Alejandra MD [address] [facility] [address] [address] PCP - General Obstetrics and Gynecology 02/26/24
[2025-11-12 09:02] VITALS: BP 133/75; PULSE 113; RESP 20; TEMP 37.2; O2SAT 97
[2025-11-12 09:24] LABS: EDCOVIDSCREEN Negative (Negative); EDINFLUASCREEN Positive (Negative); EDINFLUBSCREEN Negative (Negative)
--- NOTE | 2025-11-12 09:35 | ED_ITS ---
HPI - URI/Sore Throat General Chief Complaint: Upper Respiratory Infection Stated Complaint: fever/nose/no taste Time Seen by Provider: 11/12/25 09:10 Source: patient and RN notes reviewed Mode of arrival: ambulatory Limitations: no limitations History of Present Illness HPI Narrative: 30-year-old female patient presents Express Care complaining of upper respiratory symptoms for approximately 4 days. Patient reports cough, congestion, fevers, runny nose, body aches, chills. Patient denies any other upper respiratory symptoms, breathing problems, chest pain, nausea, vomiting, diarrhea, or any other symptoms. My taking [id number] cold and flu medication with some relief. Patient reports she got her flu shot this year. Related Data Home Medications ?Medication ?Instructions ?Recorded ?Confirmed ?Last Taken ?Type No Home Medications 11/12/25 Unknown H istory Allergies Allergy/AdvReac Type Severity Reaction Status Date / Time No Known Allergies Allergy Verified 11/12/25 09:09 Review of Systems Review of Systems: CONSTITUTIONAL: Positive for fever, chills, body aches. Negative for sweats. EYES: Denies visual changes, redness, or discharge. ENT: Positive for rhinorrhea, congestion. Negative for sore throat, or otalgia. CARDIOVASCULAR: Denies chest pain, palpitations, or edema. RESPIRATORY: Positive for cough. Negative for wheezing or Dyspnea. GASTROINTESTINAL: Denies abdominal pain, nausea, vomiting, or diarrhea. GENITOURINARY: Denies dysuria or hematuria. SKIN: Denies rash or itching. MUSCULOSKELETAL: Denies back pain, joint pain, or myalgia. NEUROLOGIC: Denies headache, numbness, or weakness. PSYCHIATRIC: Denies anxiety or depression. All other systems reviewed are negative, except as documented in HPI. PMFSH Comments At the time of my signature, I reviewed and agree with the nursing past medical, surgical, social, and family history. There is no relevant family history pertinent to the patient complaint. Exam Narrative: GENERAL: This is a well-nourished, well-developed adult, in no apparent distress. They are non ill-appearing, nontoxic appearing. HEAD: normocephalic, atraumatic. EYES: Sclera clear/white. Conjunctiva normal. Vision is grossly intact. Extraocular movements intact EARS: External ears normal, auditory canals clear and without drainage, TMs normal without perforation. Hearing grossly intact. NOSE: External nose normal with no obvious nasal discharge, nasal turbinates erythematous, no rhinorrhea. THROAT: Mucous membranes moist, posterior pharynx erythematous with PND present. Uvula midline. NECK: Neck supple, non-tender without lymphadenopathy, masses or thyromegaly. CARDIOVASCULAR: Regular rate and rhythm without murmurs, gallops, or rubs. RESPIRATORY: Clear to auscultation. Breath sounds equal bilaterally. No wheezes, rales, or rhonchi. SKIN: warm, Dry, intact with no suspicious lesions or rash, good texture and turgor. NEURO: awake, alert, and oriented to person, place and time. There were no obvious focal neurologic abnormalities. EXTREMITIES: No joint tenderness, effusion, or edema noted. BACK: Nontender without deformity. No CVA tenderness. Course Course Level of Care: Express Care Visit Vital Signs Vital signs: Vital Signs Temperature 99.0 F 11/12/25 09:02 Pulse Rate 113 H 11/12/25 09:02 Respiratory Rate 20 11/12/25 09:02 Blood Pressure 133/75 11/12/25 09:02 Pulse Oximetry 97 11/12/25 09:02 Oxygen Delivery Room Air 11/12/25 09:02 Temperature 99.0 F 11/12/25 09:02 Pulse Rate 113 H 11/12/25 09:02 Respiratory Rate 20 11/12/25 09:02 Blood Pressure 133/75 11/12/25 09:02 Pulse Oximetry 97 11/12/25 09:02 Oxygen Delivery Room Air 11/12/25 09:02 [facility] Narrative Medical decision making narrative: Flu A positive. Negative COVID. Patient said she had her flu shot this year. Patient outside the window for Tamiflu. Discussed supportive care. Discussed physical exam findings. Advised supportive measures and signs/symptoms to go to the ER. Pt is appropriate for outpt treatment and f/u. Differential Diagnosis Differential Diagnosis: Differential diagnostic considerations for upper respiratory infection include upper respiratory infection, croup, otitis media, sinusitis, viral infection, bronchitis, influenza, pharyngitis, strep, uvulitis. Lab Data [facility] Lab Attestation statement: I personally reviewed the patient's lab results. Labs: Lab Results 11/12/25 Range/Units 09:10 POC Influenza A Ag Positive (Negative) POC Influenza B Ag Negative (Negative) POC SARS CoV-2 Ag Negative (Negative) Critical Care Time Critical Care Time Critical Care Time: No Discharge Plan Discharge Clinical Impression: Influenza Patient Disposition: Home Condition: Stable Instructions: Antibiotic Form, Influenza (ED) Additional Instructions: You should avoid crowds until you are fever free for 24 hours without the use of fever reducing medications, or the symptoms are improved Rest. Drink plenty of fluids. You may take ibuprofen 600 mg to 800 mg every 6-8 hours. Do not exceed more than 800 mg of ibuprofen per dose. Do not exceed more than 3200 mg ibuprofen in a day. You may take up to 1000 mg Tylenol every 6-8 hours. Do not exceed 1000 mg per dose, do exceed more than 4000 mg of Tylenol in a day. Recommend Flonase spray and Zyrtec (or Claritin/Yesica) for sinus pressure/congestion over the counter Cough syrup may cause drowsiness; avoid driving or take it at night time. Follow up with your primary care provider 3-5 days Go to the ER for worsening symptoms, chest pain, breathing problems, vomiting, or other serious concerns Patient Language: Kinyarwanda Prescriptions: No Action No Home Medications Follow-up/Referrals: PHYSICIAN,MANAGER MEDIA RELATIONS [Primary Care Provider, Internal Medicine] Stand Alone Forms: Work/School Release IP Time of Disposition: 09:30
== END 2025-11-12 09:39 | disposition home or self-care (01) ==
DX: J10.1 Influenza due to other identified influenza virus with other respiratory manifestations (principal)
CPT/HCPCS: 87426; 87804; 99212; G0463